=== PATIENT | male | born 1970 | race Asian ===

== ENCOUNTER 2017-07-08 10:45 | Emergency (ER) | payer BC ==
[~2017-07-08] VITALS: Ht 177.8 cm; Wt 86.0 kg
[2017-07-08] MEDS ORDERED: SACU1TAB PO (11:06)
[2017-07-08] MEDS ORDERED: WARF2 PO (11:06)
[2017-07-08] MEDS ORDERED: ACETAMINOPHEN/CODEINE 300-30 MG TABLET PO ONE (11:30)
[2017-07-08 12:34] VITALS: BP 145/88
[2017-07-08 12:36] LABS: INFLUENZA TYPE A NEGATIVE FOR TYPE A (NEGATIVE); INFLUENZA TYPE B NEGATIVE FOR TYPE B (NEGATIVE)
== END 2017-07-08 12:34 | disposition home or self-care (01) ==
LOC: EMS 10:47
DX: J11.1 Influenza due to unidentified influenza virus with other respiratory manifestations (principal); I51.9 Heart disease, unspecified; Z98.890 Other specified postprocedural states; Z79.01 Long term (current) use of anticoagulants
CPT/HCPCS: 87804; 99284